=== PATIENT | male | born 1995 | race Hispanic/Latino ===

== ENCOUNTER 2022-02-18 07:19 | Emergency (ER) | payer SELFPAY ==
[~2022-02-18] VITALS: Ht 172.7 cm; Wt 58.1 kg
[2022-02-18] MEDS ORDERED: PREDNISONE20 MG PO (07:58)
[2022-02-18] MEDS ORDERED: CEPHALEXIN500 M1 PO (07:58)
== END 2022-02-18 08:17 | disposition home or self-care (01) ==
LOC: ED 07:19
DX: T63.301A Toxic effect of unspecified spider venom, accidental (unintentional), initial encounter (principal)
CPT/HCPCS: 99282; A9270; J7512